=== PATIENT | male | born 1985 | race Caucasian/White ===

== ENCOUNTER 2017-03-16 14:05 | Emergency (ER) | payer MEDICAID, OTHER ==
[2017-03-16 14:08] VITALS: BP 140/94
--- NOTE | 2017-03-16 15:35 | ED ---
Laceration/Wound HPI - HPI Summary HPI Summary: 31M presents with laceration to left leg and abrasions to right elbow. He was standing on a trailer when he slipped onto the pavement and landed on his left leg and right arm. He denies any head injury. He is not on any blood thinners. He has full ROM of his extremities and is able to bear weight. He has not taken anything for his pain. He is right handed. He cleaned the abrasions before he got here. - History of Current Complaint Stated Complaint: LEG LACERATION Time Seen by Provider: 03/16/17 14:15 Pain Intensity: 3 - Allergy/Home Medications Allergies/Adverse Reactions: Allergies Allergy/AdvReac Type Severity Reaction Status Date / Time No Known Allergies Allergy Verified 03/16/17 14:06 PMH/Surg Hx/FS Hx/Imm Hx Endocrine/Hematology History: Denies: Hx Anticoagulant Therapy Cardiovascular History: Denies: Hx Hypertension Infectious Disease History: No Infectious Disease History: Denies: History Other Infectious Disease, Traveled Outside the in Last 30 Days - Family History Known Family History: Positive: Hypertension - Social History Alcohol Use: Occasionally Substance Use Type: Reports: None Smoking Status (MU): Light Every Day Tobacco Smoker Type: Cigarettes, Smokeless Tobacco Amount Used/How Often: 4-5 cigs per day Length of Time of Smoking/Using Tobacco: 17 years Have You Smoked in the Last Year: Yes Review of Systems Negative: Fever Negative: Chest Pain Negative: Shortness Of Breath Positive: Other - abrasions, laceration to left morrell All Other Systems Reviewed And Are Negative: Yes Physical Exam Triage Information Reviewed: Yes Vital Signs On Initial Exam: Initial Vitals Temp Pulse Resp BP Pulse Ox 98.4 F 118 18 140/94 98 03/16/17 14:06 03/16/17 14:06 03/16/17 14:06 03/16/17 14:06 03/16/17 14:06 Vital Signs Reviewed: Yes Appearance: Positive: Well-Appearing Skin: Positive: Warm, Dry, Other - abrasions to right elbow and right hand, 2 cm by 1cm laceration of left morrell with abrasions Head/Face: Positive: Normal Head/Face Inspection Eyes: Positive: Normal, Conjunctiva Clear ENT: Positive: Normal ENT inspection, Pharynx normal, TMs normal Respiratory/Lung Sounds: Positive: Clear to Auscultation, Breath Sounds Present Cardiovascular: Positive: Normal, RRR Musculoskeletal: Positive: Strength/ROM Intact - of all extermities, Other - good pulses, capillary refill < 2 secs, no step off, - Andrzej Coma Scale Coma Scale Total: 15 Procedures - Laceration/Wound Repair 1 Location: Other - left lower leg Description: Linear Anesthesia: Local, 1.0% Length, Depth and Shape: 2cm by 1cm wide Betadine Prep?: Yes Irrigated w/ Saline (ccs): 100 Closure: Single Layer Suture Type: Prolene - 4-0 Number of Sutures: 2 - vertical mattress suture Diagnostics - Vital Signs Vital Signs Temp Pulse Resp BP Pulse Ox 03/16/17 14:06 98.4 F 118 18 140/94 98 - Laboratory Lab Statement: Any lab studies that have been ordered have been reviewed, and results considered in the medical decision making process. Laceration Repair Course/Dx - Course Course Of Treatment: 31M presents with laceration to left morrell and abrasions to right arm s/p falling today. denies any head injury. tetanus is up to date. placed 2 vertical mattress sutures in morrell. cleaned abrasions. has full ROM of extremities. pt does not want xrays. patient understands and agrees with plan - Differential Dx Differental Diagnoses: Abrasion, Avulsion, Laceration - Clinical Impression Provider Diagnoses: Laceration of left leg, Abrasion of right elbow Discharge - Discharge Plan Condition: Good Disposition: HOME Patient Education Materials: Care For Your Stitches (ED) Referrals: Sohail Rodríguez MD [Primary Care Provider] - Additional Instructions: Take Tylenol or ibuprofen for pain every 6 hours Keep area clean and dry for 48 hours, change bandages every 24 hours, do not soak area Return to ED or primary in 10-14 days to have sutures removed Return to ED if develop signs of infection such as fever, spreading redness, or pus.
== END 2017-03-16 15:42 | disposition home or self-care (01) ==
LOC: ED 14:05
DX: S81.812A Laceration without foreign body, left lower leg, initial encounter (principal); S50.311A Abrasion of right elbow, initial encounter; W19.XXXA Unspecified fall, initial encounter; Y93.9 Activity, unspecified; Y92.9 Unspecified place or not applicable; F17.210 Nicotine dependence, cigarettes, uncomplicated
CPT/HCPCS: 12001; 99281